=== PATIENT | male | born 1980 ===

== ENCOUNTER 2021-01-15 00:38 | Day surgery (SDC) | payer OTHER | END 2021-01-15 23:55 | disposition home or self-care (01) | LOC: WOUND 00:38 | DX: M96.671 Fracture of tibia or fibula following insertion of orthopedic implant, joint prosthesis, or bone plate, right leg (principal); S82.91XD Unspecified fracture of right lower leg, subsequent encounter for closed fracture with routine healing; X58.XXXD Exposure to other specified factors, subsequent encounter ==

== ENCOUNTER 2021-01-17 01:57 | Day surgery (SDC) | payer OTHER | END 2021-01-17 23:28 | disposition home or self-care (01) | LOC: WOUND 01:57 | DX: M96.672 Fracture of tibia or fibula following insertion of orthopedic implant, joint prosthesis, or bone plate, left leg (principal); S81.802D Unspecified open wound, left lower leg, subsequent encounter; X58.XXXD Exposure to other specified factors, subsequent encounter ==

== ENCOUNTER 2021-01-20 02:38 | Day surgery (SDC) | payer OTHER | END 2021-01-20 23:03 | disposition home or self-care (01) | LOC: WOUND 02:38 | DX: M96.672 Fracture of tibia or fibula following insertion of orthopedic implant, joint prosthesis, or bone plate, left leg (principal); S81.802D Unspecified open wound, left lower leg, subsequent encounter; W13.0XXD Fall from, out of or through balcony, subsequent encounter | CPT/HCPCS: A9270 ==

== ENCOUNTER 2021-01-22 00:45 | Day surgery (SDC) | payer OTHER | END 2021-01-22 12:00 | disposition home or self-care (01) | LOC: WOUND 00:45 | DX: M96.672 Fracture of tibia or fibula following insertion of orthopedic implant, joint prosthesis, or bone plate, left leg (principal) ==

== ENCOUNTER 2021-01-24 04:24 | Day surgery (SDC) | payer OTHER | END 2021-01-24 23:25 | disposition home or self-care (01) | LOC: WOUND 04:24 | DX: M96.672 Fracture of tibia or fibula following insertion of orthopedic implant, joint prosthesis, or bone plate, left leg (principal); S81.802D Unspecified open wound, left lower leg, subsequent encounter; X58.XXXD Exposure to other specified factors, subsequent encounter ==

== ENCOUNTER 2021-01-27 04:50 | Day surgery (SDC) | payer OTHER | END 2021-01-27 23:51 | disposition home or self-care (01) | LOC: WOUND 04:50 | DX: S81.802D Unspecified open wound, left lower leg, subsequent encounter (principal); M96.672 Fracture of tibia or fibula following insertion of orthopedic implant, joint prosthesis, or bone plate, left leg | CPT/HCPCS: A9270 ==

== ENCOUNTER 2021-01-31 00:33 | Day surgery (SDC) | payer OTHER | END 2021-01-31 12:00 | disposition home or self-care (01) | LOC: WOUND 00:33 | DX: S81.802D Unspecified open wound, left lower leg, subsequent encounter (principal); X58.XXXD Exposure to other specified factors, subsequent encounter; M96.672 Fracture of tibia or fibula following insertion of orthopedic implant, joint prosthesis, or bone plate, left leg ==

== ENCOUNTER 2021-02-03 05:37 | Day surgery (SDC) | payer OTHER | END 2021-02-03 23:30 | disposition home or self-care (01) | LOC: WOUND 05:37 | DX: M96.672 Fracture of tibia or fibula following insertion of orthopedic implant, joint prosthesis, or bone plate, left leg (principal); S81.802D Unspecified open wound, left lower leg, subsequent encounter; W13.0XXD Fall from, out of or through balcony, subsequent encounter | CPT/HCPCS: A9270 ==

== ENCOUNTER 2021-02-05 02:09 | Day surgery (SDC) | payer OTHER | END 2021-02-05 23:08 | disposition home or self-care (01) | LOC: WOUND | DX: M96.672 Fracture of tibia or fibula following insertion of orthopedic implant, joint prosthesis, or bone plate, left leg (principal); S81.802D Unspecified open wound, left lower leg, subsequent encounter; X58.XXXD Exposure to other specified factors, subsequent encounter ==

== ENCOUNTER 2021-02-07 01:21 | Day surgery (SDC) | payer OTHER | END 2021-02-07 23:52 | disposition home or self-care (01) | LOC: WOUND 01:21 | DX: M96.672 Fracture of tibia or fibula following insertion of orthopedic implant, joint prosthesis, or bone plate, left leg (principal); S81.802D Unspecified open wound, left lower leg, subsequent encounter; X58.XXXD Exposure to other specified factors, subsequent encounter ==

== ENCOUNTER 2021-02-10 03:05 | Day surgery (SDC) | payer OTHER | END 2021-02-10 22:58 | disposition home or self-care (01) | LOC: WOUND 03:05 | DX: T81.31XA Disruption of external operation (surgical) wound, not elsewhere classified, initial encounter (principal); Y83.8 Other surgical procedures as the cause of abnormal reaction of the patient, or of later complication, without mention of misadventure at the time of the procedure | CPT/HCPCS: A9270; G0463 ==

== ENCOUNTER 2021-02-17 03:58 | Day surgery (SDC) | payer OTHER | END 2021-02-17 12:00 | disposition home or self-care (01) | LOC: WOUND 03:58 | DX: M96.672 Fracture of tibia or fibula following insertion of orthopedic implant, joint prosthesis, or bone plate, left leg (principal); S81.802D Unspecified open wound, left lower leg, subsequent encounter; X58.XXXD Exposure to other specified factors, subsequent encounter | CPT/HCPCS: A9270 ==

== ENCOUNTER 2021-02-24 06:24 | Day surgery (SDC) | payer OTHER | END 2021-02-24 22:54 | disposition home or self-care (01) | LOC: WOUND 06:24 | DX: S81.802A Unspecified open wound, left lower leg, initial encounter (principal); M96.672 Fracture of tibia or fibula following insertion of orthopedic implant, joint prosthesis, or bone plate, left leg; X58.XXXA Exposure to other specified factors, initial encounter | CPT/HCPCS: G0463 ==

== ENCOUNTER 2021-03-24 09:16 | Day surgery (SDC) | payer OTHER | END 2021-03-24 23:09 | disposition home or self-care (01) | LOC: WOUND 09:16 | DX: M96.672 Fracture of tibia or fibula following insertion of orthopedic implant, joint prosthesis, or bone plate, left leg (principal); S81.802D Unspecified open wound, left lower leg, subsequent encounter; X58.XXXD Exposure to other specified factors, subsequent encounter | CPT/HCPCS: A9270 ==

== ENCOUNTER 2021-03-31 03:53 | Day surgery (SDC) | payer OTHER | END 2021-03-31 23:03 | disposition home or self-care (01) | LOC: WOUND 03:53 | DX: M96.672 Fracture of tibia or fibula following insertion of orthopedic implant, joint prosthesis, or bone plate, left leg (principal); S81.802D Unspecified open wound, left lower leg, subsequent encounter; X58.XXXD Exposure to other specified factors, subsequent encounter | CPT/HCPCS: A9270 ==

== ENCOUNTER 2021-04-07 04:16 | Day surgery (SDC) | payer OTHER | END 2021-04-07 12:00 | disposition home or self-care (01) | LOC: WOUND 04:16 | DX: M96.672 Fracture of tibia or fibula following insertion of orthopedic implant, joint prosthesis, or bone plate, left leg (principal); S81.802D Unspecified open wound, left lower leg, subsequent encounter; X58.XXXD Exposure to other specified factors, subsequent encounter | CPT/HCPCS: A9270 ==

== ENCOUNTER 2021-04-21 03:43 | Day surgery (SDC) | payer OTHER | END 2021-04-21 22:47 | disposition home or self-care (01) | LOC: WOUND 03:43 | DX: M96.672 Fracture of tibia or fibula following insertion of orthopedic implant, joint prosthesis, or bone plate, left leg (principal); S81.802D Unspecified open wound, left lower leg, subsequent encounter; W13.0XXD Fall from, out of or through balcony, subsequent encounter | CPT/HCPCS: A9270; G0463 ==

== ENCOUNTER 2021-05-05 00:56 | Day surgery (SDC) | payer OTHER | END 2021-05-05 23:23 | disposition home or self-care (01) | LOC: WOUND 00:56 | DX: M96.672 Fracture of tibia or fibula following insertion of orthopedic implant, joint prosthesis, or bone plate, left leg (principal); S81.802D Unspecified open wound, left lower leg, subsequent encounter; X58.XXXD Exposure to other specified factors, subsequent encounter | CPT/HCPCS: A9270; G0463 ==

== ENCOUNTER 2021-05-26 03:20 | Day surgery (SDC) | payer OTHER | END 2021-05-26 23:37 | disposition home or self-care (01) | LOC: WOUND 03:20 | DX: S81.802A Unspecified open wound, left lower leg, initial encounter (principal); X58.XXXA Exposure to other specified factors, initial encounter; Z87.81 Personal history of (healed) traumatic fracture | CPT/HCPCS: A9270; G0463 ==

== ENCOUNTER 2021-06-09 03:04 | Day surgery (SDC) | payer OTHER | END 2021-06-09 12:00 | disposition home or self-care (01) | LOC: WOUND 03:04 | DX: S81.802D Unspecified open wound, left lower leg, subsequent encounter (principal); M96.672 Fracture of tibia or fibula following insertion of orthopedic implant, joint prosthesis, or bone plate, left leg | CPT/HCPCS: A9270; G0463 ==

== ENCOUNTER 2021-06-23 01:37 | Day surgery (SDC) | payer OTHER | END 2021-06-23 23:42 | disposition home or self-care (01) | LOC: WOUND 01:37 | DX: S81.802D Unspecified open wound, left lower leg, subsequent encounter (principal); M96.672 Fracture of tibia or fibula following insertion of orthopedic implant, joint prosthesis, or bone plate, left leg | CPT/HCPCS: G0463 ==